=== PATIENT | male | born 1955 | race Caucasian/White ===

== ENCOUNTER → 2020-01-16 | Outpatient (CLI) | payer OTHER | END | disposition home or self-care (01) | LOC: LAB SHORT 12:54 → PLD 12:54 | DX: C44.519 Basal cell carcinoma of skin of other part of trunk (principal) | CPT/HCPCS: 88305 ==

== ENCOUNTER → 2021-03-18 | Outpatient (CLI) | payer OTHER | LOC: LAB SHORT 14:09 → LAB 14:09 | DX: D48.5 Neoplasm of uncertain behavior of skin (principal) | CPT/HCPCS: 88305 ==

== ENCOUNTER 2022-02-05 12:09 | Day surgery (SDC) | payer OTHER ==
[~2022-02-05] VITALS: Ht 182.9 cm; Wt 100.5 kg
[~2022-02-05 12:09] MED LIST: ATOR20 PO; IBUP600 PO; MELATONIN5 M1 PO; SINEMET 25-1001 EAC1 PO; VITAMIN B125000 MC1 PO; VITAMIN D310 MC5 PO
--- NOTE | 2022-02-05 13:34 | NUR ---
02/05/22 133[address] [place] History, Chart, Medications and Allergies reviewed before start of procedure. Patient confirms NPO status and agrees with scheduled surgery. 3-LEAD EKG REVIEWED WITH PHYSICIAN PRIOR TO START OF PROCEDURE. MONITOR INTACT WITH CONTINUOUS PULSE OXIMETRY AND INTERMITTENT BP. PATIENT DETERMINED TO BE ASA APPROPRIATE FOR PROPOFOL SEDATION PRIOR TO START OF PROCEDURE BY DR. LAI
--- NOTE | 2022-02-05 14:15 | NUR ---
PT TO STEP. DENIES C/O PAIN OR NAUSEA. STATES HE DOESN'T WANT ANYTHING TO DRINK.
--- NOTE | 2022-02-05 14:17 | NUR ---
REPORT GIVEN TO ANDREA ANDERSON RN.
--- NOTE | 2022-02-05 14:57 | NUR ---
Discharge instructions reviewed with patient. Patient verbalizes understanding. Copy given to patient to take home. Discharged via wheelchair to private car for ride home. Ambulatory in Day [facility]
== END 2022-02-05 22:42 | disposition home or self-care (01) ==
LOC: ORSCMMR 12:09 → ORD 13:30 → ORSCMMR 13:30
PROVIDERS: Surgery
PROC: 0DBK8ZX Excision of Ascending Colon, Via Natural or Artificial Opening Endoscopic, Diagnostic (ICD-10-PCS; principal; 2022-02-05 13:30)
DX: Z12.11 Encounter for screening for malignant neoplasm of colon (principal); D12.2 Benign neoplasm of ascending colon; E78.5 Hyperlipidemia, unspecified; G20 Parkinson's disease; E66.9 Obesity, unspecified; Z68.30 Body mass index [BMI] 30.0-30.9, adult; Z79.899 Other long term (current) drug therapy
CPT/HCPCS: 88305; J2704; J7120

== ENCOUNTER 2023-06-09 08:46 | Day surgery (SDC) | payer MEDICARE, OTHER ==
[~2023-06-09] VITALS: Ht 182.9 cm; Wt 100.0 kg
[2023-06-09] VITALS (11 sets, daily range): BP systolic 78–155; BP diastolic 61–115
[~2023-06-09 08:46] MED LIST changes: +Aspir 8181 MG PO; +FLUDROCORTISON0.1 M1 PO; +POTCHL20ER PO
--- NOTE | 2023-06-09 18:30 | NUR ---
SHIFT SUMMARY ASSUMED CARE AT 1500. NEW ADMIT TO UNIT THIS SHIFT POST PACEMAKER PLACEMENT. ALERT AND ORIENTED IN BED. 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 RESP ROOM AIR, SATS ABOVE 92%. TELE ATRIAL PACED AT 60, LABILE BLOOD PRESSURES, WILL CONTINUE TO MONITOR CLOSELY. DENIES SOB AND CHEST PAIN/PRESSURE. LEFT CHEST WALL SITE WNL WITH DRESSING C/D/I. ICE PACK AND SLING IN PLACE. MEDICATED FOR MILD PAIN WITH TYLENOL. TOLERATING CARDIAC DIET AND LIQUIDS. PLAN FOR CHECK OF CXR AND DEVICE INTERROGATION IN AM, DC HOME IF STABLE. GRANDCHILDREN VISITED DURING DINNER.
[2023-06-10 00:22] VITALS: BP 120/71
[2023-06-10 04:43] VITALS: BP 96/80
--- NOTE | 2023-06-10 06:19 | NUR ---
SHIFT SUMMARY PATIENT ALERT AND ORIENTED X4, INDEPENDENT IN ROOM. HAD NO COMPLAINTS OF PAIN OR SHORTNESS OF BREATH. PATIENT ON ROOM AIR. VITAL SIGNS STABLE, PACED ON TELE. NO ACUTE ISSUES NOTED OVERNIGHT. WILL CONTINUE TO MONITOR. CALL LIGHT WITHIN REACH.
[2023-06-10 07:47] VITALS: BP 127/96
[2023-06-10 11:58] VITALS: BP 127/100
[2023-06-10] MEDS ORDERED: CEPH500 PO (13:44)
--- NOTE | 2023-06-10 14:19 | NUR ---
DISCHARGE UPDATE DISCHARGE PACKET GONE OVER WITH PT AND PT FAMILY 1415. PT DISCHARGED AT 1426. PT REFUSED WHEELCHAIR DURING DISCHARGE AND WALKED OUT ON HIS OWN, TOLERATED WELL. PACER ID CARD IN DISCHARGE PACKET AND WITH PT AT TIME OF DISCHARGE. PT PERSONAL BELONGINGS IN A BAG AND WITH PT FAMILY AT TIME OF DISCAHRGE. APPOINTMENT CARD FOR PACEMAKER CLINIC IN PACKET AND WITH PT AT TIME OF DISCHARGE. PT EDUCATED ON HC 2 WEEK POST PACER IMPLANTATION INSTRUCTIONS AND SIGNED BY PT, COPY WITH PT AND COPY IN CHART.
== END 2023-06-10 15:20 | disposition short-term general hospital (02) ==
LOC: MHTC 08:46 → PCU 11:35 → MHTC 06-10 15:20
DX: I49.5 Sick sinus syndrome (principal); E78.5 Hyperlipidemia, unspecified; Z79.82 Long term (current) use of aspirin; Z79.899 Other long term (current) drug therapy
CPT/HCPCS: 33208; 71045; 76937; 99152; 99153; A9270; C1785; C1894; C1898; J0690; J1644; J2250; J3010; J7030; J7040